=== PATIENT | female | born 1940 | race Caucasian/White ===

== ENCOUNTER 2021-10-03 07:55 | Day surgery (SDC) | payer OTHER ==
[~2021-10-03] VITALS: Ht 152.4 cm; Wt 51.3 kg
[~2021-10-03 07:55] MED LIST: ADULT LOW DOSE81 M1 PO; ALENDRONATE SOD70 MG PO; CALCIUM500 M2 PO; D3 + K2 DOTS 11 EACH PO; MULTIPLE VITAM1 EAC2 PO; SYNTHROID75 MCG PO; ZOCOR40 MG PO
== END 2021-10-03 16:10 | disposition home or self-care (01) ==
LOC: CIR.AMB 07:55
PROVIDERS: ATTEND Orthopaedic Surgery
DX: M75.111 Incomplete rotator cuff tear or rupture of right shoulder, not specified as traumatic (principal); M75.21 Bicipital tendinitis, right shoulder; M19.011 Primary osteoarthritis, right shoulder; M75.41 Impingement syndrome of right shoulder; Z20.822 Contact with and (suspected) exposure to COVID-19; E03.9 Hypothyroidism, unspecified; M85.88 Other specified disorders of bone density and structure, other site; Z79.82 Long term (current) use of aspirin